=== PATIENT | male | born 1965 | race Caucasian/White ===

== ENCOUNTER 2021-01-13 16:00 | Emergency (ER) | payer OTHER | END 2021-01-13 18:44 | disposition home or self-care (01) | LOC: ERS 16:00 | DX: M25.552 Pain in left hip (principal); M79.652 Pain in left thigh; E11.9 Type 2 diabetes mellitus without complications; E78.2 Mixed hyperlipidemia; I10 Essential (primary) hypertension; F17.220 Nicotine dependence, chewing tobacco, uncomplicated; Z79.84 Long term (current) use of oral hypoglycemic drugs; Z79.899 Other long term (current) drug therapy; V43.52XA Car driver injured in collision with other type car in traffic accident, initial encounter ==